=== PATIENT | male | born 1960 | race Caucasian/White ===

== ENCOUNTER 2021-02-17 14:41 | Emergency (ER) | payer OTHER ==
[~2021-02-17] VITALS: Ht 175.3 cm; Wt 131.5 kg
[2021-02-17 16:05] LABS: HEMOGLOBIN 13.3 gm/dL (14.0-18.0); MCH 26.6 pg (26.0-34.0); MPV 9.7 fl. (7.2-11.1); RDW-CV 14.3 % (10.5-14.5); WBC 10.4 thou/uL (4.0-11.0)
[2021-02-17 16:07] LABS: ABSOLUTE LYMPHOCYTES 0.9 thou/uL (0.8-5.3); ABSOLUTE MONOCYTES 0.7 thou/uL (0.0-1.2); ABSOLUTE NEUTROPHILS 8.7 thou/uL (1.6-8.1); BASOPHILS 0.2 %; HEMATOCRIT 39.8 % (42.0-52.0); LYMPHOCYTES 8.7 %; MCHC 33.3 g/dL (28.0-37.0); MCV 79.9 fL (80.0-100.0); MONOCYTES 7.2 %; NUCLEATED RBCS 0 /100WBC; PLATELET COUNT* 190 thou/uL (150-400); POLYS 83.9 %; RBC 4.98 mil/uL (4.50-6.00)
[2021-02-17 16:15] LABS: CALCIUM 8.2 mg/dL (8.5-10.1); CREATININE 1.6 mg/dL (0.6-1.3); POTASSIUM 3.9 mmol/L (3.5-5.1)
[2021-02-17 16:20] LABS: ALBUMIN 2.3 g/dL (3.4-5.0); TOTAL BILIRUBIN 0.6 mg/dL (<0.1-1.0); TOTAL PROTEIN 7.2 g/dL (6.4-8.2)
[2021-02-17 16:35] LABS: URINE BILIRUBIN NEGATIVE (Negative); URINE BLOOD 1+ (Negative); URINE CLARITY CLEAR; URINE COLOR YELLOW; URINE GLUCOSE-RANDOM 1+ (Negative); URINE KETONES 1+ (Negative); URINE LEUKOCYTES-REFLEX NEGATIVE (Negative); URINE NITRITE-REFLEX NEGATIVE (Negative); URINE PROTEIN 3+ (Negative); URINE SPECIFIC GRAVITY 1.025 (1.005-1.030); URINE UROBILINOGEN 0.2 E.U./dl (0.2-1.0)
--- NOTE | 2021-02-17 16:38 | EKG ---
[place] [address] ELECTROCARDIOGRAM REPORT Name: CHRISTEL FUNEZ Room: [facility]#: [id number] Admission: 02/17/21 Attend Phys: Discharge: Date of : 64 Date of Service: 02/17/21 1545 Report #: [id number] THIS REPORT FOR: //name// [facility] ED Test Date: 2021-02-17 Test Time: 15:45:58 Pat Name: CHRISTEL FUNEZ Department: Room: Gender: [employer]: : 1960 Requested By: Manuel Mistry Order Number: [id number] MD: Jermain Gale Measurements Intervals [place] Rate: 75 P: 14 MS: 177 QRS: -8 QRSD: 109 T: 55 QT: 391 QTc: 437 Interpretive Statements Sinus rhythm RSR' in V1 or V2, right VCD or RVH Minimal ST elevation, anterior leads No previous ECG available for comparison Electronically Signed On 02-17-2021 16:38:19 CDT by Jermain aGle [email or web address] <ELECTRONICALLY SIGNED> By: Jermain Gale MD, FACC 02/17/21 1638 1545 1545 Jermain Gale MD, [facility] /EPI
[2021-02-17 16:46] LABS: CRYSTALS None Seen /LPF (None Seen); HYALINE CASTS 4-10 Moderate /LPF (None Seen); MUCUS None Seen strn/LPF (None Seen); SQUAMOUS NONE SEEN /LPF (0-3); URINE RBC 0-2 Rare /HPF (0-2)
[2021-02-17 16:47] LABS: BACTERIA-REFLEX None Seen /HPF (None Seen); URINE WBC-REFLEX None Seen /HPF (0-5)
[2021-02-17] MEDS ORDERED: VENTOLIN HFA 1818 GM INH (17:26)
[2021-02-17] MEDS ORDERED: DEXAMETHASONE 44 M1 PO (17:26)
[2021-02-17] MEDS ORDERED: ZPAK PO (17:26)
[2021-02-17] MEDS ORDERED: METFORMIN HCL500 M3 PO (17:26)
[2021-02-17] MEDS ORDERED: ZOFRAN ODT4 MG DISSOLVE (17:28)
[2021-02-17 17:44] VITALS: BP 146/75
== END 2021-02-17 17:44 | disposition home or self-care (01) ==
LOC: M.ERS 14:41
PROVIDERS: Family Medicine
DX: U07.1 COVID-19 (principal); R73.9 Hyperglycemia, unspecified; R11.0 Nausea; Z88.2 Allergy status to sulfonamides